=== PATIENT | male | born 1995 | race Caucasian/White ===

== ENCOUNTER 2021-06-17 00:06 | Emergency (ER) | payer BC, SELFPAY ==
[2021-06-17 00:07] VITALS: BP 129/73; PULSE 75; RESP 18; TEMP 37; O2SAT 100; BMI 23.9
[2021-06-17] MEDS: Ondansetron 4 MG/2 ML Vial IV (00:30)
[2021-06-17] MEDS: Dicyclomine 20 MG/2 ML Vial IM (00:31)
[2021-06-17] MEDS: 0.9% Normal Saline 1,000 ML 1000 ML IV (00:31)
[2021-06-17 00:32] LABS: Absolute Lymphocyte Count 2.24 X10^3/uL (0.83-4.51); Absolute Neutrophil Count 8.4 X10^3/uL (2.0-7.7); Basophil# 0.04 X10^3/uL; Basophil% 0.3 % (0-1); Eosinophil# 0.27 X10^3/uL; Eosinophils% 2.2 % (0-5); Hematocrit 39.8 % (40-54); Hemoglobin 13.6 g/dL (13.0-16.5); Lymphocyte # 2.24 X10^3/ul (0.83-4.51); Lymphocyte % 18.5 % (19-41); Mean Corp Hgb Conc 34.2 g/dL (32-36); Mean Corpuscular Hgb 29.4 pg (27.0-32.0); Mean Corpuscular Volume 86.1 fL (80-94); Mean Platelet Vol. 9.8 fl (6.2-12.0); Monocyte% 9.1 % (0-10); NRBC Flagged by Analyzer 0 % (0-5); Neutrophil # 8.43 X10^3/uL (2.7-7.7); Neutrophil % 69.7 % (47-70); Platelet Count 323 K/mm3 (150-450); RBC Distribution Width CV 12.8 % (11.6-14.6); RBC Distribution Width SD 40.1 fl (35.1-43.9); Red Blood Count 4.62 M/mm3 (4.6-6.2); White Blood Count 12.1 K/mm3 (4.4-11.0)
--- NOTE | 2021-06-17 00:36 | EDS_ITS ---
HPI HPI - GI History of Present Illness Chief Complaint: Abd Pain Informant: patient Narrative Narrative: Patient has had epigastric pain since Sunday. It started off dull but is gotten a little sharper. It has started and stayed in the epigastric and left upper quadrant area. The last day or so he has developed nausea and vomiting. He states he is not nauseated all the time. However, occasionally his mouth starts watering and then he will vomit. He is never vomited blood. He has been trying to drink chicken soup but has vomited some of this up. He denies any diarrhea soft stools or melena. Occasionally the pain seems to r adiate through to his back in the same area but is not there now. He has never had pancreatitis. He rarely drinks alcohol and has not drank recently. He has had no abdominal surgeries. Nothing specifically makes his symptoms better or worse. There have been no fevers. There has been no migration or change in the area of pain. PFSH PFSH Home Medications dicyclomine 20 mg PO TID PRN #14 tab 06/17/21 [Rx Last Taken Unknown] omeprazole 20 mg PO DAILY #14 cap 06/17/21 [Rx Last Taken Unknown] ondansetron 4 mg PO Q8H PRN #10 tab 06/17/21 [Rx Last Taken Unknown] Allergy/AdvReac Type Severity Reaction Status Date / Time morphine Allergy Hives Verified 06/17/21 00:12 Penicillins Allergy Hives Verified 06/17/21 00:12 Social History Smoking Status: Current every day smoker tobacco type: cigarettes ROS ROS ED Constitutional Constitutional ED: Denies chills or fever(s) ENT ENT ED: Denies rhinorrhea or sore throat Cardiovascular Cardiovascular: Denies palpitations Respiratory/Chest Respiratory/Chest: Denies cough or dyspnea Gastrointestinal Gastrointestinal: Reports abdominal pain, nausea and vomiting; Denies constipation, diarrhea or melena Genitourinary Genitourinary ED: Denies dysuria or hematuria Musculoskeletal Musculoskeletal: Reports back pain; Denies neck pain Integumentary Denies rash Neurologic Neurologic: Denies headache(s), paresthesias or weakness Psychiatric Psychiatric: Denies depression Endocrine Endocrinology: Denies polydipsia or polyuria Hematologic/Lymphatic Hematologic/Lymphatic: Denies easy bleeding or easy bruising Allergic/Immunologic Allergic/Immunologic ED: Denies mouth swelling or tongue swelling EXAM Physical Exam Const Vital Signs: 06/17/21 00:07 06/17/21 02:25 Temperature 98.6 F Temperature Source Temporal Pulse Rate 75 79 Respiratory Rate 18 18 Blood Pressure 129/73 H 124/64 H Blood Pressure Mean 91 Pulse Ox 100 Oxygen Delivery Method Room Air Positive well nourished and well developed General Appearance ED: well developed and NAD; Negative for pallor HEENT Reports moist mucous membranes Eyes General Eye ED: Negative for pale conjunctiva or scleral icterus Neck no JVD Resp normal respiratory effort and clear to auscultation bilaterally Cardio regular rate, regular rhythm and no murmurs GI non-distended and no masses GI Narrative: Patient has very mild tenderness in the epigastric and left upper quadrant area. Absolutely no tenderness in right upper quadrant or anywhere in the lower abdomen. No tenderness at all in right lower quadrant either. Auscultation: normoactive bowel sounds Palpation: soft; Negative for guarding, rigid or rebound tenderness present Back/Spine no CVA tenderness Extremity General Extremety ED: Negative for edema General Extremity: Negative for edema Neuro Sensorium / Orientation: alert Psych mental status grossly normal Skin General Skin Exam: Negative for jaundice or pallor Lesions: no lesions Rashes: no rashes MDM MDM MDM Narrative Medical decision making narrative: Patient's labs show a minimal nonspecific elevation of his white count. Electrolytes, liver function test and lipase are normal. He is feeling better. He has some soreness remaining. But the nausea is gone. His exam is relatively benign. Patient has had about 3 days of symptoms. He has nausea vomiting epigastric pain. He only vomits on occasion. No blood. I do not think he needs a CAT scan at this point. I think this is likely a gastritis type picture. We will get him started on medication. I have encouraged him to return if he gets worsening pain, fevers, vomiting blood or blood in the stool or any other complaints. Lab Data Attestation: I reviewed the patient's lab results. Labs: Laboratory Results - last 24 hr 06/17/21 06/17/21 00:10 00:10 WBC 12.1 H RBC 4.62 Hgb 13.6 Hct 39.8 L MCV 86.1 MCH 29.4 MCHC 34.2 RDW Std Deviation 40.1 RDW Coeff of Jennifer 12.8 Plt Count 323 MPV 9.8 Immature Gran % (Auto) 0.200 Neut % (Auto) 69.7 Lymph % (Auto) 18.5 L [place] % (Auto) 9.1 Eos % (Auto) 2.2 Baso % (Auto) 0.3 Absolute Neuts (auto) 8.4 H Absolute Lymphs (auto) 2.24 Nucleated RBC % 0 Sodium 138 Potassium 3.5 Chloride 103 Carbon Dioxide 29.0 Anion Gap 6 BUN 14 Creatinine 0.95 Estim Creat Clear Calc 142.07 Est GFR (MDRD) Af Amer 123 Est GFR (MDRD) Non-Af 102 BUN/Creatinine Ratio 14.7 Glucose 110 H Calcium 9.1 Total Bilirubin 0.50 AST 13 L ALT 19 Alkaline Phosphatase 84 Total Protein 7.2 Albumin 3.8 Globulin 3.4 Albumin/Globulin Ratio 1.1 Lipase 79 Discharge Plan Triage Chief Complaint: Abd Pain ED Provider: Hank Noble Dx/Rx/DC Orders Clinical Impression: Acute epigastric pain, Gastritis Instructions: ED Epigastric Pain Uncertain Cause Prescriptions: New ondansetron 4 mg tablet,disintegrating 4 mg PO Q8H PRN (Reason: nausea and vomiting) Qty: 10 RF: 0 dicyclomine 20 mg tablet 20 mg PO TID PRN (Reason: abdominal pain/cramping) Qty: 14 RF: 0 omeprazole 20 mg capsule,delayed release(DR/EC) 20 mg PO DAILY Qty: 14 RF: 0 Primary Care Provider: Care Physician,No Primary Referrals: Fast,Judi, DO [NON-STAFF] - 1-2 Days if not improving Care Physician,No Primary [Primary Care Provider] - Disposition Disposition: Home, Self Care Discharge Date/Time: 06/17/21 02:26
[2021-06-17 00:44] LABS: ALB/GLOB Ratio 1.1 RATIO (0.9-2.4); AST(SGOT) 13 U/L (15-37); Alanine Aminotransfer ALT/SGPT 19 U/L (16-61); Albumin, Serum 3.8 g/dL (3.2-5.0); Alkaline Phosphatase 84 U/L (45-117); Anion Gap 6 (5-15); BUN 14 mg/dL (7-18); BUN/Creat Ratio 14.7 RATIO (10-20); Calcium,Total 9.1 mg/dL (8.5-10.1); Chloride 103 mmol/L (98-107); Creatinine, Serum 0.95 mg/dL (0.70-1.30); EST Glomerular Filtration Rate 102 mL/min (>60); Est Glom Filt Rate - Afr Amer 123 mL/min (>60); Estimated Creatinine Clearance 142.07 ml/min; Globulin 3.4 g/dL (2.2-4.2); Glucose 110 mg/dL (74-106); Lipase 79 U/L (73-393); Potassium 3.5 mmol/L (3.5-5.1); Protein, Total 7.2 g/dL (6.4-8.2); Sodium Level 138 mmol/L (136-145)
[2021-06-17] MEDS: Ketorolac 15 MG/ML Vial IV (02:06)
[2021-06-17] MEDS: DiphenhydrAMINE 50 MG/ML Syringe IV (02:12)
[2021-06-17 02:25] VITALS: BP 124/64; PULSE 79; RESP 18
== END 2021-06-17 02:26 | disposition home or self-care (01) ==
PROVIDERS: Emergency Provider Emergency Medicine
DX: K29.00 Acute gastritis without bleeding (principal); F17.210 Nicotine dependence, cigarettes, uncomplicated
CPT/HCPCS: 80053; 83690; 85025; 96361; 96372; 96374; 96375; 99282; A4216; J2405

== ENCOUNTER 2022-10-17 12:15 | Inpatient (IN) | payer MEDICAID, SELFPAY ==
[2022-10-17 12:15] VITALS: BP 109/84; PULSE 86; RESP 16; TEMP 36.8; O2SAT 95; BMI 25.0
[2022-10-17 13:10] LABS: Absolute Lymphocyte Count 1.88 X10^3/uL (0.83-4.51); Absolute Neutrophil Count 7.9 X10^3/uL (2.0-7.7); Basophil# 0.03 X10^3/uL; Basophil% 0.3 % (0-1); Eosinophil# 0.01 X10^3/uL; Eosinophils% 0.1 % (0-5); Hematocrit 42.3 % (40-54); Hemoglobin 14.8 g/dL (13.0-16.5); Lymphocyte # 1.88 X10^3/ul (0.83-4.51); Lymphocyte % 17.5 % (19-41); Mean Corpuscular Hgb 29.4 pg (27.0-32.0); Mean Corpuscular Volume 83.9 fL (80-94); Mean Platelet Vol. 9.5 fl (6.2-12.0); Monocyte# 0.85 X10^3/uL; Monocyte% 7.9 % (0-10); NRBC Flagged by Analyzer 0 % (0-5); Neutrophil # 7.91 X10^3/uL (2.7-7.7); Neutrophil % 73.5 % (47-70); Platelet Count 410 K/mm3 (150-450); RBC Distribution Width CV 12.7 % (11.6-14.6); RBC Distribution Width SD 38.4 fl (35.1-43.9); Red Blood Count 5.04 M/mm3 (4.6-6.2); White Blood Count 10.8 K/mm3 (4.4-11.0)
[2022-10-17 13:14] LABS: Amphetamine Urine VISTA NEGATIVE (<1000 ng/mL); Barbiturate Urine VISTA NEGATIVE (< 200 ng/mL); Benzodiazepine Urine VISTA NEGATIVE (< 200 ng/mL); Cocaine Urine VISTA NEGATIVE (< 300 ng/mL); Ecstacy Urine VISTA NEGATIVE (< 500 ng/mL); Methadone Urine VISTA NEGATIVE (< 300 ng/mL); PCP Urine VISTA NEGATIVE (< 25 ng/mL); THC Urine VISTA POSITIVE (< 50 ng/mL); Vista UDS pH Range 6
--- NOTE | 2022-10-17 13:25 | CM.ED ---
Social Work Note Referral Source: Case Find Referral Reason: detox SW met with patient and introduced herself and role as [facility] Cavity Pump Operator. Patient was seated on hospital bed in gown and agreeable to speak with SW. SW inquired about patient's AOD use and knowledge of the detox program. Patient reports daily use of fentanyl for 6 to 8 months, explaining he used an average of a gram a day and his last day of use was about a week ago. Patient was reporting withdrawal symptoms and was struggling to engage in eye contact. SW briefly reviewed [facility] rules including patient's person belongings being locked up, no access to his phone or guests and the patient would meet with the additions counselor for after care/ discharge planning. SW explained patient's RN would be in to further review the rules and have patient sign a contract. Patient reported an understanding and had no questions. Giuliana RAMÍREZ, VINICIUS
[2022-10-17 13:31] LABS: Anion Gap 10 (5-15); BUN 12 mg/dL (7-18); BUN/Creat Ratio 12.2 RATIO (10-20); Calcium,Total 9.9 mg/dL (8.5-10.1); Chloride 106 mmol/L (98-107); Creatinine, Serum 0.98 mg/dL (0.70-1.30); EST Glomerular Filtration Rate 97 mL/min (>60); Est Glom Filt Rate - Afr Amer 118 mL/min (>60); Estimated Creatinine Clearance 135.32 ml/min; Glucose 134 mg/dL (74-106); Sodium Level 142 mmol/L (136-145)
[2022-10-17 13:32] LABS: Alcohol, Blood (Medical)-Serum < 3.0 mg/dL
--- NOTE | 2022-10-17 15:09 | EDS_ITS ---
HPI History of Present Illness Chief Complaint: Substance Abuse Narrative Narrative: 27-year-old male presenting for opiate detox. He states he does a gram of fentanyl a day. Last use was 4 to 5 days ago. Low he states he is significantly withdrawing. He states he still has abdominal cramps and diarrhea. He is not able to eat and drink. He has body aches. Patient request detox. Patient did take 9 other drugs of abuse to me. He states he used to be on Suboxone but when he stopped taking this he bridged back to fentanyl. PFSH PFSH Medical History no medical history Allergy/AdvReac Type Severity Reaction Status Date / Time morphine Allergy Hives Verified 10/17/22 12:16 Penicillins Allergy Hives Verified 10/17/22 12:16 Surgical History no surgical history Social History Smoking Status: Current every day smoker tobacco type: cigarettes ROS ROS ED Constitutional Constitutional ED: Denies chills or fever(s) Eyes Eyes: Denies change in vision or diplopia ENT ENT ED: Denies rhinorrhea or sore throat Cardiovascular Cardiovascular: Denies chest pain or palpitations Respiratory/Chest Respiratory/Chest: Denies cough or dyspnea Gastrointestinal Gastrointestinal: Reports diarrhea and nausea Genitourinary Genitourinary ED: Denies dysuria Musculoskeletal Musculoskeletal: Reports myalgias Integumentary Denies abscess or Abrasions Neurologic Neurologic: Denies headache(s) or paresthesias Psychiatric Psychiatric: Denies anxiety, depression, suicidal ideation or suicidal thoughts EXAM Physical Exam Const Vital Signs: 10/17/22 12:15 Temperature 98.2 F Temperature Source Temporal Pulse Rate 86 Respiratory Rate 16 Blood Pressure 109/84 H Blood Pressure Mean 92 Pulse Ox 95 Oxygen Delivery Method Room Air MDM MDM MDM Narrative Medical decision making narrative: Patient presenting for opiate detox. He is given Zofran, dicyclomine. Blood work is obtained and his CBC is unremarkable. BMP shows hypokalemia with a potassium of 3.0 which was repleted orally. Glucose 134 without anion gap. Drug abuse screen positive for cannabinoids. EtOH negative. Discussed with hospitalist for admission. Impression: 1. History of opioid abuse 2. Presentation for opioid detox Lab Data Labs: Laboratory Results - last 24 hr 10/17/22 10/17/22 10/17/22 12:35 13:00 13:00 WBC 10.8 RBC 5.04 Hgb 14.8 Hct 42.3 MCV 83.9 MCH 29.4 MCHC 35.0 RDW Std Deviation 38.4 RDW Coeff of Jennifer 12.7 Plt Count 410 MPV 9.5 Immature Gran % (Auto) 0.700 Neut % (Auto) 73.5 H Lymph % (Auto) 17.5 L [place] % (Auto) 7.9 Eos % (Auto) 0.1 Baso % (Auto) 0.3 Absolute Neuts (auto) 7.9 H Absolute Lymphs (auto) 1.88 Nucleated RBC % 0 Sodium 142 Potassium 3.0 L Chloride 106 Carbon Dioxide 26.0 Anion Gap 10 BUN 12 Creatinine 0.98 Estim Creat Clear Calc 135.32 Est GFR (MDRD) Af Amer 118 Est GFR (MDRD) Non-Af 97 BUN/Creatinine Ratio 12.2 Glucose 134 H Calcium 9.9 Urine Opiates Screen NEGATIVE Urine Methadone Screen NEGATIVE Ur Barbiturates Screen NEGATIVE Ur Phencyclidine Scrn NEGATIVE Ur Amphetamines Screen NEGATIVE MDMA (Ecstasy) Screen NEGATIVE U Benzodiazepines Scrn NEGATIVE Urine Cocaine Screen NEGATIVE U Cannabinoids Screen POSITIVE H Ur Drug Screen Comment Ethyl Alcohol 10/17/22 13:00 WBC RBC Hgb Hct MCV MCH MCHC RDW Std Deviation RDW Coeff of Jennifer Plt Count MPV Immature Gran % (Auto) Neut % (Auto) Lymph % (Auto) [place] % (Auto) Eos % (Auto) Baso % (Auto) Absolute Neuts (auto) Absolute Lymphs (auto) Nucleated RBC % Sodium Potassium Chloride Carbon Dioxide Anion Gap BUN Creatinine Estim Creat Clear Calc Est GFR (MDRD) Af Amer Est GFR (MDRD) Non-Af BUN/Creatinine Ratio Glucose Calcium Urine Opiates Screen Urine Methadone Screen Ur Barbiturates Screen Ur Phencyclidine Scrn Ur Amphetamines Screen MDMA (Ecstasy) Screen U Benzodiazepines Scrn Urine Cocaine Screen U Cannabinoids Screen Ur Drug Screen Comment Ethyl Alcohol < 3.0 Discharge Plan Triage Chief Complaint: Substance Abuse ED Provider: Isaac Boyce Dx/Rx/DC Orders Primary Care Provider: Care Physician,No Primary Referrals: Care Physician,No Primary [Primary Care Provider] -
--- NOTE | 2022-10-17 15:10 | NURSING ---
MED SURG [facility] OPIOD DETOX
[2022-10-17] MEDS: Ondansetron ODT 4 MG Tablet PO (15:16)
[2022-10-17] MEDS: Potassium Chloride Oral Tablet 20 MEQ 40 MEQ PO (15:17)
[2022-10-17] MEDS: Dicyclomine 20 MG/2 ML Vial IM (15:17)
[2022-10-17 15:33] VITALS: BP 132/86; PULSE 65; RESP 18; TEMP 37.2; O2SAT 98
--- NOTE | 2022-10-17 15:37 | PCM.HP.STD ---
HPI - General General Date of Admission: 10/17/22 Date of Service: 10/17/22 Chief Complaint: Request for detox HPI Narrative RAQUEL VALDIVIA, is a 27 M w/ hx of opioid use who presented to [facility] 10/17/22 for opioid detox. He reports long history of opioid use and previously was on suboxone but took himself off 1 year ago due to not liking the feeling of withdrawal from Suboxone. He relapsed about 3 to 4 months ago and has been using 1 g of fentanyl by snorting, previously used IV but reports he was checked for hepatitis and HIV and was negative and has not recently been using IV. Reports his last opioid use was about 4 days ago and in the past he has had withdrawal symptoms for up to a week and still feels like he is withdrawing, very anxious, abdominal pain and GI upset, general malaise, runny nose, feels generally unwell and like he still withdrawing. [facility] Medical History no medical history Home Medications NK 10/17/22 [History Last Taken Unknown] Allergy/AdvReac Type Severity Reaction Status Date / Time morphine Allergy Hives Verified 10/17/22 12:16 Penicillins Allergy Hives Verified 10/17/22 12:16 Surgical History no surgical history Social History Smoking Status: Current every day smoker tobacco type: cigarettes ROS ROS Narrative General: Generally unwell HENT: Denies headache, runny nose, denies sore throat EYES: Denies changes in vision Resp: Denies cough, denies shortness of breath Cardiac: Denies chest pain GI: GI upset, abdominal pain : Denies changes in urination Extremity: Denies swelling MSK: Denies weakness Neuro: Denies any numbness, denies tingling Heme: Denies any bleeding or bruising Skin: Redness together Psychiatric: Anxiety Vital Signs Vital Signs Vital Signs: 10/17/22 12:15 10/17/22 15:33 Temperature 98.2 F 98.9 F Temperature Source Temporal Oral Pulse Rate 86 65 Respiratory Rate 16 18 Blood Pressure 109/84 H 132/86 H Blood Pressure Mean 92 101 Pulse Ox 95 98 Oxygen Delivery Method Room Air Room Air Weight Weight: 90.804 kg Body Mass Index (BMI) 25.0 Physical Exam Narrative General: Alert, oriented, appears anxious HEENT: Atraumatic, normocephalic Eyes: Anicteric, normal conjunctiva, extraocular movements grossly intact Neck: Supple Respiratory: Clear to auscultation bilaterally, normal respiratory effort Cardiovascular: Regular rate and rhythm GI: Soft, nontender, nondistended Extremities: No edema Musculoskeletal: Moving all extremities Neuro: No overt focal neurological deficits Skin: Has some redness on the inside of knees Psych: Appears anxious Results Lab / Micro Data Result Diagrams: 10/17/22 13:00 10/17/22 13:00 Labs: Laboratory Results - last 24 hr 10/17/22 12:35: Urine Opiates Screen NEGATIVE, Urine Methadone Screen NEGATIVE, Ur Barbiturates Screen NEGATIVE, Ur Phencyclidine Scrn NEGATIVE, Ur Amphetamines Screen NEGATIVE, MDMA (Ecstasy) Screen NEGATIVE, U Benzodiazepines Scrn NEGATIVE, Urine Cocaine Screen NEGATIVE, U Cannabinoids Screen POSITIVE H, Ur Drug Screen Comment 10/17/22 13:00: WBC 10.8, RBC 5.04, Hgb 14.8, Hct 42.3, MCV 83.9, MCH 29.4, MCHC 35.0, RDW Std Deviation 38.4, RDW Coeff of Jennifer 12.7, Plt Count 410, MPV 9.5, Immature Gran % (Auto) 0.700, Neut % (Auto) 73.5 H, Lymph % (Auto) 17.5 L, [place] % (Auto) 7.9, Eos % (Auto) 0.1, Baso % (Auto) 0.3, Absolute Neuts (auto) 7.9 H, Absolute Lymphs (auto) 1.88, Nucleated RBC % 0 10/17/22 13:00: Sodium 142, Potassium 3.0 L, Chloride 106, Carbon Dioxide 26.0, Anion Gap 10, BUN 12, Creatinine 0.98, Estim Creat Clear Calc 135.32, Est GFR (MDRD) Af Amer 118, Est GFR (MDRD) Non-Af 97, BUN/Creatinine Ratio 12.2, Glucose 134 H, Calcium 9.9 10/17/22 13:00: Ethyl Alcohol < 3.0 Assessment & Plan Assessment/Plan (1) Opioid use: PLAN: Plan #Acute opiate withdrawal - Subutex taper initiated - As needed Tylenol, ibuprofen, bowel regimen, gabapentin, Bentyl, Vistaril, methocarbamol, clonidine - As needed trazodone nightly - As needed antiemetics -Once patient begins to clinically improve will discuss further discharge planning #DVT ppx: Low risk, ambulatory Gayla Vallejo MD Charges/Coding Visit Charges Inpatient E&M: 74685 Init Hosp L1
[2022-10-17 16:57] VITALS: BMI 23.6
[2022-10-17 17:05] VITALS: BP 133/86; PULSE 58; RESP 20; TEMP 36.6; O2SAT 99
[2022-10-17] MEDS: Gabapentin 300 MG Capsule PO (17:44)
[2022-10-17] MEDS: Methocarbamol 750 MG Tablet 1500 MG PO ×2 (17:44→23:52)
[2022-10-17] MEDS: Buprenorphine HCl 2 MG TAB.SUBL SL (18:04)
[2022-10-17] MEDS: cloNIDine HCl 0.1 MG Tablet PO (18:38)
[2022-10-17] MEDS: hydrOXYzine PAM 25 MG Capsule 50 MG PO (18:38)
[2022-10-17 21:38] VITALS: BP 135/86; PULSE 96; RESP 16; TEMP 36.6; O2SAT 97
[2022-10-17] MEDS: traZODone 100 MG Tablet PO (21:41)
[2022-10-18 02:12] VITALS: BP 124/76; PULSE 63; RESP 15; TEMP 36.6; O2SAT 98
[2022-10-18] MEDS: hydrOXYzine PAM 25 MG Capsule 50 MG PO ×2 (02:16→20:03)
[2022-10-18] MEDS: cloNIDine HCl 0.1 MG Tablet PO ×3 (02:16→20:03)
[2022-10-18] MEDS: Buprenorphine HCl 2 MG TAB.SUBL SL ×3 (02:17→17:55)
[2022-10-18] MEDS: Methocarbamol 750 MG Tablet 1500 MG PO ×2 (06:00→16:39)
[2022-10-18] MEDS: Gabapentin 300 MG Capsule PO (06:00)
--- NOTE | 2022-10-18 07:31 | PCM.PN.HOSP ---
Reason for Visit Reason for Visit: Opiate detox Subjective Subjective Mr. Andrade is a 27-year-old white male who presented to the emergency department [facility] on 10/17/2022 requesting opiate detox. He reported a long history of opiate use and was previously on Suboxone but took himself off of it about a year ago due to not liking the withdrawal from Suboxone. He relapsed about 3 to 4 months ago and has been using approximately 1 g of fentanyl daily. He currently is snorting it but has previous IVDU. He has been recently checked for hepatitis and HIV both of which were negative. He reports has not used any IV drugs since his last hepatitis and HIV assessment. He reported his last opiate use was about 4 days prior to presentation and has had ongoing withdrawal symptoms including anxiety, abdominal pain, nausea, rhinorrhea, and general feeling of unwellness. He was admitted to the medical floor and started on a Subutex taper with supportive medications. Patient states he is feeling okay at this point but still having some generalized achiness especially in the lower extremities. No diarrhea, nausea, or vomiting. No piloerection. States he plans to [facility] and would like to get on Vivitrol. He did not like the way Suboxone made him feel. Objective Data Objective Data Vital Signs: Vital Signs Temp Pulse Resp BP Pulse Ox O2 Del Method 97.8 F 63 15 124/76 H 98 Room Air 10/18/22 02:12 10/18/22 02:12 10/18/22 02:12 10/18/22 02:12 10/18/22 02:12 10/18/22 02:12 Oxygen Delivery Method Room Air Weight: 88.178 kg Body Mass Index (BMI) 23.6 Intake & Output: Intake and Output for Last 24 Hours 10/16/22 10/17/22 10/18/22 23:59 23:59 23:59 Intake Total 1000 / 1000 Balance 1000 / 1000 Lab / Micro Data Result Diagrams: 10/17/22 13:00 10/17/22 13:00 Labs: Laboratory Results - last 24 hr 10/17/22 12:35: Urine Opiates Screen NEGATIVE, Urine Methadone Screen NEGATIVE, Ur Barbiturates Screen NEGATIVE, Ur Phencyclidine Scrn NEGATIVE, Ur Amphetamines Screen NEGATIVE, MDMA (Ecstasy) Screen NEGATIVE, U Benzodiazepines Scrn NEGATIVE, Urine Cocaine Screen NEGATIVE, U Cannabinoids Screen POSITIVE H, Ur Drug Screen Comment 10/17/22 13:00: WBC 10.8, RBC 5.04, Hgb 14.8, Hct 42.3, MCV 83.9, MCH 29.4, MCHC 35.0, RDW Std Deviation 38.4, RDW Coeff of Jennifer 12.7, Plt Count 410, MPV 9.5, Immature Gran % (Auto) 0.700, Neut % (Auto) 73.5 H, Lymph % (Auto) 17.5 L, [place] % (Auto) 7.9, Eos % (Auto) 0.1, Baso % (Auto) 0.3, Absolute Neuts (auto) 7.9 H, Absolute Lymphs (auto) 1.88, Nucleated RBC % 0 10/17/22 13:00: Sodium 142, Potassium 3.0 L, Chloride 106, Carbon Dioxide 26.0, Anion Gap 10, BUN 12, Creatinine 0.98, Estim Creat Clear Calc 135.32, Est GFR (MDRD) Af Amer 118, Est GFR (MDRD) Non-Af 97, BUN/Creatinine Ratio 12.2, Glucose 134 H, Calcium 9.9 10/17/22 13:00: Ethyl Alcohol < 3.0 Physical Exam Const alert, oriented x3, no apparent distress, healthy appearing and well nourished Constitutional Narrative: Young, pleasant, white male, sitting up in bed, appears comfortable nontoxic HEENT head/scalp atraumatic and moist oral mucous membranes Head and Scalp: normocephalic Resp normal respiratory effort, no retractions, no use of accessory muscles and clear to auscultation bilaterally Auscultation: Negative for rales, rhonchi or wheezes Cardio regular rate, regular rhythm, S1 normal heart sound, S2 normal heart sound, no murmurs, no rub, no gallops and no clicks GI normal to inspection, nondistended, normoactive bowel sounds, soft to palpation and non-tender Extremity no clubbing, cyanosis or edema Extremity Narrative: 2+ pedal pulses Neuro oriented x3, moves all extremities and no focal motor deficits Psych affect normal Psych Narrative: Eye contact is good, no signs of depression Assessment & Plan Assessment/Plan (1) Opioid use: (2) Hypokalemia: PLAN: Plan Acute opiate withdrawal -Last use was approximately 4 days ago but was intranasal fentanyl -Previous history of IVDU but has tested negative for HIV and hepatitis since his last IVDU -As needed supportive medications available -Consultation 180 for assistance with follow-up after discharge Hypokalemia -Potassium was 3.0 on admission -He was repleted in the emergency department -Repeat BMP in a.m. Tobacco abuse -Continue nicotine patch 14 mg daily -Recommend cessation DVT prophylaxis -Low risk -Recommend early and frequent ambulation CODE STATUS -Full code Charges/Coding Visit Charges Inpatient E&M: 34089 Subs Hosp L2
[2022-10-18 07:50] VITALS: BP 134/73; PULSE 60; RESP 12; TEMP 37; O2SAT 97
--- NOTE | 2022-10-18 10:59 | ADDICTION ---
TW met with pt to complete ASAM, AUDIT, DUDIT, MSE, ROIs, and begin d/c planning. Pt has a previous treatment history at [facility] and is intersted in returning to [facility] [place], individual counseling, and receiving Vivitrol through them. TW called [facility] twice with no answer. TW left with [facility] Coordinator phone number to give a return call to. D/C Plan is complete except for appt time/day. D/C Plan will be placed in chart with JAROCHO. Once [facility] calls back with appt time, D/C plan can be copied and given to client.
[2022-10-18 11:58] VITALS: BP 128/73
--- NOTE | 2022-10-18 13:33 | CHAPLAIN ---
Type of Pastoral Visit _x__ Initial Visit ___ Follow-up Visit ___ On-call Visit ___ General Patient Visit ___ Spiritual Assessment ___ Family Conference ___ Bereavement ___ Rapid Response ___ Code Blue ___ Other (describe below) Pastoral Care Referral From _x__ Patient ___ Family _x__ Nurse ___ Physician ___ General Farm Hand ___ Karate Black Belt ___ Other (describe below) Sacrament/Intervention _x__ Active listening ___ Anointing ___ Mu-Ism ___ Bereavement ___ Communion _x__ Tahira exploration ___ _x__ Life review _x__ Prayer ___ Reconciliation ___ Sacrament of Sick _x__ Supportive presence ___ Wedding ___ Other (describe below) Pastoral Comments patient is awake, stating I have not slept in seven days; pt speaks of being clean and then relapsed, moving away from girlfriend to spare her from his addiction and living with father so as to get help in detox/recovery; pt speaks of a life long friend who is supportive and will do anything to get me well again; pt states that he is unworthy of such concern; explored feelings of pt and his 'unworthiness', focusing on the things that he has going for him; pt states that he used to go to gnosticist all the time until grandpa and then the family went in different directions; pt welcomes presence and prayer of the diagnostic medical sonographer; pt expresses gratitude for the supportive visit;
[2022-10-18 16:36] VITALS: BP 117/74; PULSE 69; RESP 14; TEMP 37.2; O2SAT 100
[2022-10-18] MEDS: Ensure Plus High Protein 120 ML LIQUID PO (17:55)
[2022-10-18] MEDS: traZODone 100 MG Tablet PO (20:03)
[2022-10-19] MEDS: Ondansetron 8 MG Tablet PO (00:20)
[2022-10-19] MEDS: Dicyclomine 10 MG Capsule 20 MG PO (00:20)
[2022-10-19] MEDS: Buprenorphine HCl 2 MG TAB.SUBL SL ×3 (01:39→17:26)
[2022-10-19] MEDS: Gabapentin 300 MG Capsule PO ×3 (01:40→19:48)
[2022-10-19] MEDS: hydrOXYzine PAM 25 MG Capsule 50 MG PO ×2 (02:03→15:01)
[2022-10-19 02:15] VITALS: BP 121/64; PULSE 60; RESP 17; TEMP 37; O2SAT 97
[2022-10-19] MEDS: Ensure Plus High Protein 120 ML LIQUID PO ×2 (07:40→11:53)
[2022-10-19 07:48] LABS: Anion Gap 7 (5-15); BUN 11 mg/dL (7-18); BUN/Creat Ratio 10.9 RATIO (10-20); Calcium,Total 8.9 mg/dL (8.5-10.1); Chloride 105 mmol/L (98-107); Creatinine, Serum 1.01 mg/dL (0.70-1.30); EST Glomerular Filtration Rate 94 mL/min (>60); Est Glom Filt Rate - Afr Amer 114 mL/min (>60); Estimated Creatinine Clearance 134.88 ml/min; Glucose 120 mg/dL (74-106); Potassium 3.6 mmol/L (3.5-5.1); Sodium Level 141 mmol/L (136-145)
[2022-10-19 09:11] VITALS: BP 116/69; PULSE 97; RESP 16; TEMP 36.9; O2SAT 98
--- NOTE | 2022-10-19 11:30 | PCM.PN.HOSP ---
Reason for Visit Reason for Visit: Opiate detox Subjective Subjective Patient states he is feeling better overall today. Still some cramping in his legs. No nausea. No tremor. No piloerection. Still not sleeping well. Objective Data Objective Data Vital Signs: Vital Signs Temp Pulse Resp BP Pulse Ox O2 Del Method 98.4 F 97 16 116/69 98 Room Air 10/19/22 09:11 10/19/22 09:11 10/19/22 09:11 10/19/22 09:11 10/19/22 09:11 10/19/22 09:11 Oxygen Delivery Method Room Air Weight: 88.178 kg Body Mass Index (BMI) 23.6 Intake & Output: Intake and Output for Last 24 Hours 10/17/22 10/18/22 10/19/22 23:59 23:59 23:59 Intake Total 1000 / 1440 880 / 880 Balance 1000 / 1440 880 / 880 Lab / Micro Data Result Diagrams: 10/17/22 13:00 10/19/22 06:55 Labs: Laboratory Results - last 24 hr 10/19/22 06:55: Sodium 141, Potassium 3.6, Chloride 105, Carbon Dioxide 29.0, Anion Gap 7, BUN 11, Creatinine 1.01, Estim Creat Clear Calc 134.88, Est GFR (MDRD) Af Amer 114, Est GFR (MDRD) Non-Af 94, BUN/Creatinine Ratio 10.9, Glucose 120 H, Calcium 8.9 Physical Exam Narrative General: Alert, oriented, appears anxious HEENT: Atraumatic, normocephalic Eyes: Anicteric, normal conjunctiva, extraocular movements grossly intact Neck: Supple Respiratory: Clear to auscultation bilaterally, normal respiratory effort Cardiovascular: Regular rate and rhythm GI: Soft, nontender, nondistended Extremities: No edema Musculoskeletal: Moving all extremities Neuro: No overt focal neurological deficits Skin: Has some redness on the inside of knees Psych: Appears anxious Const alert, oriented x3, no apparent distress, average body habitus and well nourished Constitutional Narrative: Young white male sitting up in bed watching television, appears comfortable nontoxic HEENT head/scalp atraumatic and moist oral mucous membranes Resp normal respiratory effort, no retractions, no use of accessory muscles and clear to auscultation bilaterally Auscultation: Negative for rales, rhonchi or wheezes Cardio regular rate, regular rhythm, S1 normal heart sound, S2 normal heart sound, no murmurs, no rub, no gallops and no clicks GI normal to inspection, nondistended, normoactive bowel sounds, soft to palpation and non-tender Extremity no clubbing, cyanosis or edema Extremity Narrative: 2+ pedal pulses Neuro oriented x3, moves all extremities and no focal motor deficits Psych affect normal Psych Narrative: Very pleasant appropriately interactive Assessment & Plan Assessment/Plan (1) Opioid use: (2) Hypokalemia: PLAN: Plan Acute opiate withdrawal -Last use was approximately 4 days ago but was intranasal fentanyl -Previous history of IVDU but has tested negative for HIV and hepatitis since his last IVDU -As needed supportive medications available -180 has evaluated the patient--> patient pounds to follow-up at [facility] and would like to start Vivitrol after discharge Hypokalemia -Resolved Tobacco abuse -Continue nicotine patch 14 mg daily -Recommend cessation DVT prophylaxis -Low risk -Recommend early and frequent ambulation CODE STATUS -Full code Charges/Coding Visit Charges Inpatient E&M: 19975 Subs Hosp L1
[2022-10-19] MEDS: Methocarbamol 750 MG Tablet 1500 MG PO ×2 (11:56→23:01)
--- NOTE | 2022-10-19 13:06 | CHAPLAIN ---
Type of Pastoral Visit ___ Initial Visit _x__ Follow-up Visit ___ On-call Visit ___ General Patient Visit ___ Spiritual Assessment ___ Family Conference ___ Bereavement ___ Rapid Response ___ Code Blue ___ Other (describe below) Pastoral Care Referral From _x__ Patient ___ Family ___ Nurse ___ Physician ___ Form Tamper Operator ___ Forest Ranger Technician ___ Other (describe below) Sacrament/Intervention _x__ Active listening ___ Anointing ___ Episcopalian ___ Bereavement ___ Communion ___ [place] exploration ___ _x__ Life review _x__ Prayer ___ Reconciliation ___ Sacrament of Sick _x__ Supportive presence ___ Wedding ___ Other (describe below) Pastoral Comments patient is very welcoming and invites this pre sales network engineer for this visit; pt states that he did not sleep again last night and that he is very anxious; asked about his anxiety the pt states again 'I'm going to have to wait five days after I leave here before I can be seen for follow up and I'm not sure how I can wait that long; pt admits that anxiety is a normal condition for him and it's why I need help; pt responds to inquiry of his needs as getting to the outside inside of cooped up in here, getting around good positive people instead of the others who are not, and getting the monthly Vivitrol shot; sat with patient to help divert thoughts into more positive ways and watched his TV show briefly; reviewed the good things and good people that pt has in his life; gave calm presence and prayer for his encouragement and hope; pt is open to future visits if possible
[2022-10-19 14:51] VITALS: BP 113/72; PULSE 78; RESP 16; TEMP 37; O2SAT 99
[2022-10-19] MEDS: cloNIDine HCl 0.1 MG Tablet PO (15:01)
--- NOTE | 2022-10-19 16:07 | NURSING ---
ok to talk to mother, per pt. Mother had called to check in on pt.
[2022-10-19 19:50] VITALS: BP 114/70; PULSE 76; RESP 16; TEMP 36.1; O2SAT 98
[2022-10-19] MEDS: traZODone 100 MG Tablet PO (23:01)
[2022-10-19] MEDS: DiphenhydrAMINE 25 MG Capsule 50 MG PO (23:02)
[2022-10-20] MEDS: hydrOXYzine PAM 25 MG Capsule 50 MG PO ×3 (05:44→21:47)
[2022-10-20] MEDS: Buprenorphine HCl 2 MG TAB.SUBL SL (05:44)
[2022-10-20 05:48] VITALS: BP 131/73; PULSE 68; RESP 16; TEMP 36.7; O2SAT 100
[2022-10-20 07:24] VITALS: BP 114/65; PULSE 60; RESP 18; TEMP 36.3; O2SAT 99
[2022-10-20] MEDS: Methocarbamol 750 MG Tablet 1500 MG PO ×3 (07:30→21:47)
[2022-10-20] MEDS: cloNIDine HCl 0.1 MG Tablet PO (07:30)
[2022-10-20] MEDS: Gabapentin 300 MG Capsule PO ×2 (10:00→18:09)
--- NOTE | 2022-10-20 11:16 | PN.HOSP_ITS ---
Reason for Visit Reason for Visit: Diagnoses Hypokalemia (10/17/22) Opioid use, unspecified, uncomplicated (10/17/22) Subjective Subjective Patient states he did not sleep well overnight and overall is much better. Still having some loose stool only 1 bout daily. Complaining of some achiness in his legs and ongoing anxiety. He has completed the Subutex taper however he still symptomatic and would like 1 more day for as needed medications prior to discharge. His appointment with a new date to initiate Vivitrol is on Sunday. Objective Data Objective Data Vital Signs: Vital Signs Temp Pulse Resp BP Pulse Ox O2 Del Method 97.4 F L 60 18 114/65 99 Room Air 10/20/22 07:24 10/20/22 07:24 10/20/22 07:24 10/20/22 07:24 10/20/22 07:24 10/20/22 07:24 Oxygen Delivery Method Room Air Weight: 88.178 kg Body Mass Index (BMI) 23.6 Intake & Output: Intake and Output for Last 24 Hours 10/18/22 10/19/22 10/20/22 23:59 23:59 23:59 Intake Total 1000 / 1440 880 / 880 Balance 1000 / 1440 880 / 880 Lab / Micro Data Result Diagrams: 10/17/22 13:00 10/19/22 06:55 Physical Exam Const alert, oriented x3, no apparent distress, average body habitus, healthy appea ring and well nourished Constitutional Narrative: Young white male sitting up in bed watching television, appears comfortable, nontoxic HEENT head/scalp atraumatic and moist oral mucous membranes Head and Scalp: normocephalic Extremity Extremity Narrative: 2+ pedal pulses Psych affect normal Mood & Affect: anxious Assessment & Plan Assessment/Plan (1) Opioid use: (2) Hypokalemia: PLAN: Plan Acute opiate withdrawal -Last use was approximately 4 days ago but was intranasal fentanyl -Previous history of IVDU but has tested negative for HIV and hepatitis since his last IVDU -As needed supportive medications available -180 has evaluated the patient--> patient pounds to follow-up at [facility] and would like to start Vivitrol after discharge Hypokalemia -Resolved Tobacco abuse -Continue nicotine patch 14 mg daily -Recommend cessation DVT prophylaxis -Low risk -Recommend early and frequent ambulation CODE STATUS -Full code Charges/Coding Visit Charges Inpatient E&M: 80958 Subs Hosp L1
[2022-10-20 14:08] VITALS: BP 124/78; PULSE 98; RESP 18; TEMP 36.9; O2SAT 99
[2022-10-20] MEDS: Acetaminophen 325 MG Tablet 650 MG PO (21:29)
[2022-10-20] MEDS: DiphenhydrAMINE 25 MG Capsule 50 MG PO (21:46)
[2022-10-20] MEDS: traZODone 100 MG Tablet PO (21:46)
[2022-10-20] MEDS: Loperamide 2 MG Capsule PO (21:51)
[2022-10-20 21:53] VITALS: BP 127/66; PULSE 91; RESP 16; TEMP 36.6; O2SAT 100
[2022-10-21] MEDS: Methocarbamol 750 MG Tablet 1500 MG PO (06:16)
[2022-10-21] MEDS: Acetaminophen 325 MG Tablet 650 MG PO (06:17)
[2022-10-21] MEDS: hydrOXYzine PAM 25 MG Capsule 50 MG PO (06:17)
[2022-10-21] MEDS: Loperamide 2 MG Capsule PO (06:23)
[2022-10-21] MEDS: Dicyclomine 10 MG Capsule 20 MG PO (06:23)
[2022-10-21 06:29] VITALS: BP 130/82; PULSE 96; RESP 16; TEMP 36.8; O2SAT 100
--- NOTE | 2022-10-21 07:30 | DS.PCM_ITS ---
Providers Date of Admission: 10/17/22 Date of Discharge: 10/21/22 Primary Care Physician: No Primary Care Phys Reason For Visit: OPIOID DETOX Diagnosis Discharge Diagnosis (1) Opioid use: Status: Acute Code(s): F11.90 - Opioid use, unspecified, uncomplicated (2) Hypokalemia: Status: Acute Code(s): E87.6 - Hypokalemia Medications at Discharge Home Medications hydroxyzine pamoate 25 mg capsule 50 mg PO Q6H PRN PRN mild anxiety #30 caps 10/21/22 Hospital Course Operations None Procedures None Summary of Care Provided Minutes Spent on Discharge: 22 Hospital Course: Mr. Andrade is a 27-year-old white male who presented to the emergency department [facility] on 10/17/2022 requesting opiate detox.? He reported a long history of opiate use and was previously on Suboxone but took himself off of it about a year ago due to not liking the withdrawal from Suboxone.? He relapsed about 3 to 4 months ago and has been using approximately 1 g of fentanyl daily.? He currently is snorting it but has previous IVDU.? He had been recently checked for hepatitis and HIV both of which were negative.? He reported that he had not used any IV drugs since his last hepatitis and HIV assessment.? He reported his last opiate use was about 4 days prior to presentation and has had ongoing withdrawal symptoms including anxiety, abdominal pain, nausea, rhinorrhea, and general feeling of unwellness.? He was admitted to the medical floor and started on a Subutex taper with supportive medications. He completed his Subutex taper and met with 180. Plan is for follow-up at [facility]/2021 for initiation of Vivitrol and ongoing care as an outpatient for opiate addiction. Patient was having some ongoing anxiety so we did discharge him with some hydroxyzine. He does need some underlying counseling services as well. He had some mild electrolyte abnormalities during his hospital course which were corrected with enteral supplementation. We did send him on point of a as needed prescription for hydroxyzine given his ongoing anxiety and this prescription was faxed to his desired pharmacy. He was given a 1 week supply. It was recommended he follow-up and establish with a primary care physician within the next month. He was discharged home in stable condition on 10/21/2022. Discharge diagnoses: Acute opiate withdrawal-resolved Hypokalemia-resolved Tobacco abuse Physical Exam Narrative Patient states overall he is better. Still having episodes of anxiety. Const alert, oriented x3, no apparent distress, average body habitus, healthy appearing and well nourished Constitutional Narrative: Young white male sitting up on the edge of the bed, fully dressed, appears comfortable and nontoxic General Appearance: cooperative, comfortable, well kempt and well developed Orientation / Consciousness: awake, oriented to person, oriented to place and oriented to time Exam Limitations: no limitations HEENT normocephalic, head/scalp atraumatic, hearing grossly normal bilaterally and moist oral mucous membranes HEENT Narrative: Mallampati 2, no thrush Resp normal respiratory effort, no retractions, no use of accessory muscles and clear to auscultation bilaterally Auscultation: Negative for rales, rhonchi or wheezes Cardio regular rate, regular rhythm, S1 normal heart sound, S2 normal heart sound, no murmurs, no rub, no gallops and no clicks GI normal to inspection, nondistended, normoactive bowel sounds, soft to palpation and non-tender Extremity no clubbing, cyanosis or edema Extremity Narrative: 2+ pedal pulses Neuro oriented x3, moves all extremities and no focal motor deficits Speech: speech normal Psych affect normal Psych Narrative: Very pleasant appropriately interactive Mood & Affect: anxious Weight / BMI Weight Weight: 88.178 kg Body Mass Index (BMI) 23.6 ABG / Lab / Microbiology Data Result Diagrams: 10/17/22 13:00 10/19/22 06:55 D/C Instructions Discharge Diet: No restrictions Discharge Activity: Return to Normal Activity Meaningful Use Info Meaningful Use Diagnoses (Choose all that apply): None applicable Discharge Plan Admission Admit Date/Time: 10/17/22 15:36 Primary Reason for Your Visit: Opiate detox Attending Provider: Guera Hinkle Primary Care Provider: Care Physician,No Primary Consulting Providers: Gayla Vallejo Instructions Additional Instructions / Restrictions: Please follow-up with your scheduled appointment at [facility] on 10/24/2022 to initiate Vivitrol Discharge Orders/Prescriptions Prescriptions: New hydroxyzine pamoate 25 mg Capsule 50 mg PO Q6H PRN PRN (Reason: mild anxiety) Qty: 30 0RF Referrals / Follow Up: Care Physician,No Primary [Primary Care Provider] - Disposition Disposition (needs filled in before D/C Order can be placed): Home, Self Care Charges/Coding Visit Charges Inpatient E&M: 54016 Disch Hosp
[2022-10-21] MEDS: Ensure Plus High Protein 120 ML LIQUID PO (07:54)
[2022-10-21 08:01] VITALS: BP 123/88; PULSE 85; RESP 16; TEMP 36.7; O2SAT 98
== END 2022-10-21 08:40 | disposition home or self-care (01) | DRG 773 ==
LOC: ED 14:05 → MS3 15:58
PROVIDERS: Admitting Provider Internal Medicine; Emergency Provider Student in an Organized Health Care Education/Training Program; Visit Provider Internal Medicine
DX: F11.13 Opioid abuse with withdrawal (principal); E87.6 Hypokalemia; F17.210 Nicotine dependence, cigarettes, uncomplicated
CPT/HCPCS: 36415; 80048; 80307; 82077; 85025; 97802; 99284; 99406

== ENCOUNTER 2024-05-23 13:46 | Inpatient (IN) | payer MEDICAID, SELFPAY ==
[2024-05-23 13:47] VITALS: BP 104/72; PULSE 103; RESP 18; TEMP 36.2; O2SAT 100; BMI 22.6
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
[2024-05-23 15:14] LABS: Basophil# 0.02 X10^3/uL; Basophil% 0.2 % (0-1); Eosinophil# 0.02 X10^3/uL; Eosinophils% 0.2 % (0-5); Hematocrit 40.2 % (40-54); Hemoglobin 13.5 g/dL (13.0-16.5); Mean Corp Hgb Conc 33.6 g/dL (32-36); Mean Corpuscular Hgb 29.1 pg (27.0-32.0); Mean Corpuscular Volume 86.6 fL (80-94); Mean Platelet Vol. 9.2 fl (6.2-12.0); Monocyte# 0.53 X10^3/uL; Monocyte% 5.3 % (0-10); NRBC Flagged by Analyzer 0 % (0-5); Neutrophil # 8.03 X10^3/uL (2.7-7.7); Neutrophil % 80.1 % (47-70); Platelet Count 306 K/mm3 (150-450); RBC Distribution Width CV 12.8 % (11.6-14.6); RBC Distribution Width SD 40.2 fl (35.1-43.9); Red Blood Count 4.64 M/mm3 (4.6-6.2)
[2024-05-23 15:29] LABS: Alcohol, Blood (Medical)-Serum < 3.0 mg/dL
[2024-05-23 15:32] LABS: ALB/GLOB Ratio 1.1 RATIO (0.9-2.4); AST(SGOT) 21 U/L (15-37); Alanine Aminotransfer ALT/SGPT 49 U/L (16-61); Alkaline Phosphatase 78 U/L (45-117); Anion Gap 4 (5-15); BUN 13 mg/dL (7-18); BUN/Creat Ratio 12.9 RATIO (10-20); Calcium,Total 9.4 mg/dL (8.5-10.1); Chloride 107 mmol/L (98-107); Creatinine, Serum 1.01 mg/dL (0.70-1.30); EST Glomerular Filtration Rate 93 mL/min (>60); Est Glom Filt Rate - Afr Amer 113 mL/min (>60); Estimated Creatinine Clearance 129.87 ml/min; Globulin 3.6 g/dL (2.2-4.2); Glucose 113 mg/dL (74-106); Potassium 3.8 mmol/L (3.5-5.1); Protein, Total 7.6 g/dL (6.4-8.2); Sodium Level 139 mmol/L (136-145)
[2024-05-23 15:47] VITALS: BP 168/70; PULSE 102; RESP 16; O2SAT 99
[2024-05-23 16:07] LABS: Amphetamine Urine VISTA NEGATIVE (<1000 ng/mL); Barbiturate Urine VISTA NEGATIVE (< 200 ng/mL); Benzodiazepine Urine VISTA NEGATIVE (< 200 ng/mL); Cocaine Urine VISTA NEGATIVE (< 300 ng/mL); Ecstacy Urine VISTA NEGATIVE (< 500 ng/mL); Methadone Urine VISTA NEGATIVE (< 300 ng/mL); PCP Urine VISTA NEGATIVE (< 25 ng/mL); THC Urine VISTA POSITIVE (< 50 ng/mL); Vista UDS pH Range 6
[2024-05-23 17:00] VITALS: BP 126/77; PULSE 98; RESP 18; O2SAT 99
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
[2024-05-23 18:34] VITALS: BP 122/74; PULSE 99; RESP 18; TEMP 36.8; O2SAT 100
[2024-05-23 18:40] VITALS: BP 147/84; PULSE 92; RESP 18; TEMP 37.5; O2SAT 99; BMI 23.0
[2024-05-23] MEDS: Buprenorphine HCl 2 MG TAB.SUBL SL (20:07)
[2024-05-23] MEDS: Methocarbamol 750 MG Tablet PO (20:16)
[2024-05-23] MEDS: Gabapentin 300 MG Capsule PO (20:16)
[2024-05-23] MEDS: traZODone 100 MG Tablet PO (20:16)
[2024-05-23] MEDS: cloNIDine HCl 0.1 MG Tablet PO (20:16)
[2024-05-23 20:48] LABS: Prothrombin Time (Protime)PT. 13.4 SECONDS (11.7-14.9)
[2024-05-24] MEDS: Buprenorphine HCl 2 MG TAB.SUBL SL ×3 (02:59→20:22)
[2024-05-24] MEDS: Methocarbamol 750 MG Tablet PO ×3 (02:59→17:56)
[2024-05-24] MEDS: hydrOXYzine PAM 25 MG Capsule 50 MG PO ×3 (02:59→17:56)
[2024-05-24 03:01] VITALS: BP 143/83; PULSE 80; RESP 18; TEMP 37.1; O2SAT 99
[2024-05-24] MEDS: cloNIDine HCl 0.1 MG Tablet PO ×2 (05:54→20:22)
[2024-05-24] MEDS: Gabapentin 300 MG Capsule PO ×2 (05:54→14:36)
[2024-05-24] MEDS: Acetaminophen 500 MG Tablet PO ×3 (05:54→18:00)
[2024-05-24 09:00] VITALS: BP 124/77; PULSE 90; RESP 16; TEMP 36.9; O2SAT 100
[2024-05-24] MEDS: Ibuprofen 400 MG Tablet PO ×2 (10:12→20:22)
--- NOTE | 2024-05-24 14:19 | PCM.PN.HOSP ---
Reason for Visit Reason for Visit: Diagnoses Opioid use, unspecified with withdrawal (05/23/24) Subjective Subjective Patient was seen and examined today, he voices no complaints of any muscle pain nausea or vomiting. Patient is here for detox services from fentanyl Objective Data Objective Data Vital Signs: Vital Signs Temp Pulse Resp BP Pulse Ox O2 Del Method 98.5 F 90 16 124/77 H 100 Room Air 05/24/24 09:00 05/24/24 09:00 05/24/24 09:00 05/24/24 09:00 05/24/24 09:00 05/24/24 09:00 Oxygen Delivery Method Room Air Weight: 83.461 kg Body Mass Index (BMI) 23.0 Lab / Micro Data 05/23/24 15:05 05/23/24 15:05 Labs: Laboratory Results - last 24 hr 05/23/24 15:05: WBC 10.0, RBC 4.64, Hgb 13.5, Hct 40.2, MCV 86.6, MCH 29.1, MCHC 33.6, RDW Std Deviation 40.2, RDW Coeff of Jennifer 12.8, Plt Count 306, MPV 9.2, Immature Gran % (Auto) 0.200, Neut % (Auto) 80.1 H, Lymph % (Auto) 14.0 L, [place] % (Auto) 5.3, Eos % (Auto) 0.2, Baso % (Auto) 0.2, Absolute Neuts (auto) 8.0 H, Absolute Lymphs (auto) 1.40, Nucleated RBC % 0, Sodium 139, Potassium 3.8, Chloride 107, Carbon Dioxide 29.0, Anion Gap 4 L, BUN 13, Creatinine 1.01, Estim Creat Clear Calc 129.87, Est GFR (MDRD) Af Amer 113, Est GFR (MDRD) Non-Af 93, BUN/Creatinine Ratio 12.9, Glucose 113 H, Calcium 9.4, Total Bilirubin 0.50, AST 21, ALT 49, Alkaline Phosphatase 78, Total Protein 7.6, Albumin 4.0, Globulin 3.6, Albumin/Globulin Ratio 1.1, Ethyl Alcohol < 3.0 05/23/24 15:25: Urine Opiates Screen NEGATIVE, Urine Methadone Screen NEGATIVE, Ur Barbiturates Screen NEGATIVE, Ur Phencyclidine Scrn NEGATIVE, Ur Amphetamines Screen NEGATIVE, MDMA (Ecstasy) Screen NEGATIVE, U Benzodiazepines Scrn NEGATIVE, Urine Cocaine Screen NEGATIVE, U Cannabinoids Screen POSITIVE H, Ur Drug Screen Comment 05/23/24 20:10: PT 13.4, INR 1.0 Physical Exam Const alert, oriented x3, no apparent distress and healthy appearing General Appearance: cooperative, well kempt and well developed Orientation / Consciousness: awake, oriented to person, oriented to place and oriented to time HEENT normocephalic, head/scalp atraumatic and moist oral mucous membranes Eyes PERRL, EOMs intact bilaterally and conjunctivae normal Neck supple and no JVD General: trachea midline Resp normal respiratory effort and clear to auscultation bilaterally Auscultation: Negative for rales, rhonchi or wheezes Cardio regular rate, regular rhythm, no murmurs, no rub and no gallops GI normal to inspection, nondistended, normoactive bowel sounds, soft to palpation, non-tender and non-distended Extremity no clubbing, cyanosis or edema Skin no rashes or lesions noted General Skin Exam: no breakdown Neuro oriented x3, CN's II-XII intact bilaterally, no focal motor deficits and no sensory deficits noted Sensorium / Orientation: awake and alert Speech: speech normal Psych affect normal Assessment & Plan Assessment/Plan (1) Opiate withdrawal: PLAN: Plan 1. Acute withdrawal from opioids-patient will remain on his present medications #2 opioid addiction-patient will be seen by addiction social science teacher Total clinical time spent by myself addressing patient's medical issues, reviewing all of his data, and collaborating with patient's care team: 25 minutes Charges/Coding Visit Charges Inpatient E&M: 36477 [facility] Hosp L1
--- NOTE | 2024-05-24 14:24 | ADDICTION ---
Pt presents as a 28 year old male admitted to [facility] for detox from fentanyl. Pt was met with to complete RAMP assessment, ASAM, AUDIT, DUDIT, [place]. Stat, and D/C plan. Pt states that he is not interested in any [facility] or [facility] tx at this time d/t past negative experience with [facility] and interference with his work schedule. Pt was provided psychoeducation on the risks of being d/c'd from detox without any follow up care. Pt was guided in identifying relapse risk factors and warning signs to be mindful of after d/c. Pt was provided resources and phone numbers to contact if his sxs get worse after detox or he decides he wants tx. Pt states he is going home to his fathers house in [place] where his father is supportive of his recovery. Pt states that his father will transport him home after d/c.
[2024-05-24 14:33] VITALS: BP 132/83; PULSE 103; RESP 18; TEMP 36.6; O2SAT 98
[2024-05-24 20:08] VITALS: BP 139/87; PULSE 91; RESP 16; TEMP 36.9; O2SAT 98
[2024-05-24] MEDS: traZODone 100 MG Tablet PO (20:22)
[2024-05-25 02:49] VITALS: BP 145/77; PULSE 56; RESP 16; TEMP 36.7; O2SAT 96
[2024-05-25] MEDS: Buprenorphine HCl 2 MG TAB.SUBL SL ×3 (02:59→19:48)
[2024-05-25] MEDS: Gabapentin 300 MG Capsule PO ×3 (02:59→22:42)
[2024-05-25] MEDS: Methocarbamol 750 MG Tablet PO ×2 (02:59→22:42)
[2024-05-25] MEDS: Ibuprofen 400 MG Tablet PO (08:58)
[2024-05-25] MEDS: hydrOXYzine PAM 25 MG Capsule 50 MG PO ×2 (08:58→19:48)
[2024-05-25 09:40] VITALS: BP 126/89; PULSE 65; RESP 16; TEMP 36.7; O2SAT 98
[2024-05-25 12:10] VITALS: BP 111/86; PULSE 68; RESP 16; TEMP 36.8; O2SAT 99
--- NOTE | 2024-05-25 12:49 | PN.HOSP_ITS ---
Reason for Visit Reason for Visit: Diagnoses Opioid use, unspecified with withdrawal (05/23/24) Subjective Subjective Patient was seen and examined today, he has no muscle pains nausea or vomiting. His plan is to go to an outpatient detox facility after he gets discharged. This facility is in [facility]. Objective Data Objective Data Vital Signs: Vital Signs Temp Pulse Resp BP Pulse Ox O2 Del Method 98.2 F 68 16 111/86 H 99 Room Air 05/25/24 12:10 05/25/24 12:10 05/25/24 12:10 05/25/24 12:10 05/25/24 12:10 05/25/24 12:10 Oxygen Delivery Method Room Air Weight: 83.461 kg Body Mass Index (BMI) 23.0 Intake & Output: Intake and Output for Last 24 Hours 05/23/24 05/24/24 05/25/24 23:59 23:59 23:59 Intake Total 1350 / 1350 Balance 1350 / 1350 Lab / Micro Data 05/23/24 15:05 05/23/24 15:05 Physical Exam Const alert, oriented x3, no apparent distress, average body habitus and healthy appearing General Appearance: cooperative, well kempt and well developed Orientation / Consciousness: awake, oriented to person, oriented to place and oriented to time HEENT normocephalic and moist oral mucous membranes Eyes PERRL, EOMs intact bilaterally and conjunctivae normal Neck supple, no JVD, thyroid normal and no carotid bruits General: trachea midline Resp normal respiratory effort and clear to auscultation bilaterally Auscultation: Negative for rales, rhonchi or wheezes Cardio regular rate, regular rhythm, no murmurs, no rub and no gallops GI normal to inspection, nondistended, normoactive bowel sounds, soft to palpation, non-tender and non-distended Extremity no clubbing, cyanosis or edema Skin no rashes or lesions noted General Skin Exam: no breakdown Neuro oriented x3, CN's II-XII intact bilaterally, no focal motor deficits and no sensory deficits noted Sensorium / Orientation: awake and alert Speech: speech normal Psych affect normal Assessment & Plan Assessment/Plan (1) Opiate withdrawal: PLAN: Plan 1. Acute withdrawal from opioids-patient will remain on his present medications #2 opioid addiction-patient is planning on going to an outpatient detox facility after discharge from the hospital. Total clinical time spent by myself addressing patient's medical issues, reviewing all of his data, and collaborating with patient's care team: 25 minutes Charges/Coding Visit Charges Inpatient E&M: 76359 Subs Hosp L1
[2024-05-25 16:07] VITALS: BP 137/76; PULSE 56; RESP 16; TEMP 36.9; O2SAT 98
[2024-05-25] MEDS: cloNIDine HCl 0.1 MG Tablet PO (19:48)
[2024-05-25 22:37] VITALS: BP 113/70; PULSE 58; RESP 14; TEMP 36.6; O2SAT 98
[2024-05-25] MEDS: traZODone 100 MG Tablet PO (22:42)
[2024-05-26 05:30] VITALS: BP 128/85; PULSE 60; RESP 16; TEMP 36.4; O2SAT 100
[2024-05-26] MEDS: cloNIDine HCl 0.1 MG Tablet PO (05:42)
[2024-05-26] MEDS: hydrOXYzine PAM 25 MG Capsule 50 MG PO (05:42)
[2024-05-26] MEDS: Buprenorphine HCl 2 MG TAB.SUBL SL (06:45)
[2024-05-26 08:59] VITALS: BP 123/71; PULSE 69; RESP 18; TEMP 37; O2SAT 100
[2024-05-26] MEDS: Methocarbamol 750 MG Tablet PO (09:06)
[2024-05-26] MEDS: Gabapentin 300 MG Capsule PO (11:51)
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
[2024-05-26 13:56] VITALS: BP 133/81; PULSE 100; RESP 18; TEMP 36.8; O2SAT 98
--- NOTE | 2024-05-26 14:42 | PHA.DC.MR.R ---
Pharmacy [facility]con[facility] Service has performed discharge medication reconciliation for this patient. Medication education papers prepared, patient discharged when counseling was attempted. The patient's discharge medication list was reviewed for discrepancies and discrepancies were resolved. Medications at Discharge Home Medications hydroxyzine pamoate 25 mg capsule 50 mg (2 x 25 mg) PO Q6H PRN PRN mild anxiety #20 caps 05/26/24 sertraline 25 mg tablet (Zoloft) 25 mg PO DAILY #30 tabs 05/26/24
--- NOTE | 2024-05-26 15:58 | CHAPLAIN ---
Type of Pastoral Visit _x__ Initial Visit ___ Follow-up Visit ___ On-call Visit ___ General Patient Visit ___ Spiritual Assessment ___ Family Conference ___ Bereavement ___ Rapid Response ___ Code Blue ___ Other (describe below) Pastoral Care Referral From _x__ Patient ___ Family ___ Nurse ___ Physician ___ Broadcast Engineer ___ Calender Worker Helper ___ Other (describe below) Sacrament/Intervention _x__ Active listening ___ Anointing ___ Hoahaoism ___ Bereavement ___ Communion _x__ [place]ira exploration ___ _x__ Life review _x__ Prayer ___ Reconciliation ___ Sacrament of Sick _x__ Supportive presence ___ Wedding ___ Other (describe below) Pastoral Comments This patient was seen before; pt is about to be discharged but had asked for support; sat with patient for a long time to give listening ear and encourage him for the future; pt admits to severe nightmares and such bad memories that he finds them too hard to talk about and not wanting to burden others; pt is encouraged to seek help both psychologically and spiritually; pt is given time to talk and to be non judgmental about his life, rather giving him remeinder of purpose of living and having hope; prayer also accepted; pt expresses appreciation
== END 2024-05-26 14:33 | disposition home or self-care (01) | DRG 773 ==
LOC: ED 17:16 → MS3 17:35
PROVIDERS: Admitting Provider Internal Medicine; Emergency Provider Emergency Medicine
DX: F11.23 Opioid dependence with withdrawal (principal); F17.210 Nicotine dependence, cigarettes, uncomplicated; F41.9 Anxiety disorder, unspecified
CPT/HCPCS: 80053; 80307; 82077; 85025; 85610; 97802; 99283